=== PATIENT | female | born 1935 | race Caucasian/White ===

== ENCOUNTER 2018-09-22 09:40 | Emergency (ER) | payer MEDICARE, OTHER ==
[2018-09-22 10:26] LABS: WHITE BLOOD COUNT 8.4 10^3/ul (4.8-10.8)
[2018-09-22 10:26] LABS: ABNORMAL IP MESSAGE 1; HEMOGLOBIN 14.5 g/dl (12.0-16.0); MEAN CORPUSCULAR HEMOGLOBIN 28.6 pg (29.0-33.0); MEAN CORPUSCULAR VOLUME 86.8 fl (82.0-101.0); MEAN PLATELET VOLUME 9.2 fl (7.4-10.4); PLATELET COUNT 304 10^3/UL (140-415); RED BLOOD COUNT 5.07 10^6/ul (4.20-5.40); RED CELL DISTRIBUTION WIDTH 14.8 % (11.5-14.5)
[2018-09-22] MEDS: MECLIZINE 12.5 MG TAB PO (10:27)
[2018-09-22] MEDS: SOD CHLORIDE 0.9% 1,000 ML IV (10:27)
[2018-09-22 10:29] LABS: ADD MAN DIFF? YES; POSITIVE DIFF @See below
[2018-09-22 10:45] LABS: ANION GAP 12 (5-13); BLOOD UREA NITROGEN 16 mg/dl (7-20); CALCIUM 10.1 mg/dl (8.4-10.2); CARBON DIOXIDE 25 mmol/L (21-31); CHLORIDE 101 mmol/L (97-110); CREATININE 0.69 mg/dl (0.44-1.00); GLUCOSE 155 mg/dl (70-220); INR 0.89; POTASSIUM 3.5 mmol/L (3.5-5.1); PROTIME 12.2 Sec (11.9-14.9); SODIUM 138 mmol/L (135-144)
[2018-09-22 10:46] LABS: PARTIAL THROMBOPLASTIN TIME 26.4 Sec (23.0-35.0)
[2018-09-22 10:59] LABS: ANISOCYTOSIS 1+ (0-0); BAND NEUTROPHILS #M 0.3 10^3/ul (0.0-0.6); BAND NEUTROPHILS % (M) 4 % (0-4); BURR CELLS 1+ (0-0); LYMPHOCYTES #M 0.6 10^3/ul (0.8-2.9); LYMPHOCYTES % (M) 8 % (15-51); MICROCYTOSIS 1+ (0-0); MONOCYTE #M 0.2 10^3/ul (0.3-0.9); MONOCYTES % (M) 3 % (0-11); PLATELET ESTIMATE NORMAL; POLYCHROMASIA 3+ (0-0); REACTIVE LYMPHOCYTES #M 0.3 10^3/ul (0.0-0.0); REACTIVE LYMPHOCYTES% (M) 4 % (0-0); SEG NEUT #M 6.8 10^3/ul (1.6-7.5); SEGMENTED NEUTROPHILS (M) % 81 % (39-77); SMUDGE%M 3 % (0-0)
[2018-09-22 11:08] LABS: TROPONIN-I < 0.012 ng/ml (0.000-0.120)
== END 2018-09-22 12:22 | disposition home or self-care (01) ==
LOC: E/R 12:22
DX: R42 Dizziness and giddiness (principal); I10 Essential (primary) hypertension; F17.210 Nicotine dependence, cigarettes, uncomplicated; Z79.82 Long term (current) use of aspirin
CPT/HCPCS: 36415; 70450; 80048; 84484; 85025; 85610; 85730; 93005; 99285-25

== ENCOUNTER → 2018-12-30 | Outpatient (CLI) | payer MEDICARE ==
[~2018-12-30] MED LIST: IOHEXOL 100 ML; SOD CHLORIDE 0.9% 100 ML
[2018-12-30 10:30] LABS: BLOOD UREA NITROGEN 21 mg/dl (7-20)
[2018-12-30 10:30] LABS: CREATININE 0.81 mg/dl (0.44-1.00)
== END | disposition home or self-care (01) ==
LOC: LAB 09:37
DX: I25.10 Atherosclerotic heart disease of native coronary artery without angina pectoris (principal)
CPT/HCPCS: 70498; 82565; 84520